=== PATIENT | female | born 1990 | race Caucasian/White ===

== ENCOUNTER 2017-02-19 07:33 | Inpatient (IN) | payer MEDICAID ==
[~2017-02-19] VITALS: Ht 162.6 cm; Wt 69.2 kg
[2017-02-19] MEDS ORDERED: LACTATED RINGER'S 1,000 ML IV PRN (07:50)
[2017-02-19 07:54] VITALS: Ht 162.6 cm; Wt 69.2 kg
[2017-02-19] MEDS ORDERED: PRENAT PO (07:55)
--- NOTE | 2017-02-19 07:55 | TRIAGE ---
OB Triage Datetime Report Generated by CPN: 02/19/2017 07:54 Datetime: 02/19/2017 07:50 Assessment Type: Triage Maternal Assessment Level of Consciousness: Fully Conscious DTR's/Clonus: DTRs 2+; No Clonus Headache: Denies Blurred Vision: No Respiratory Effort: Unlabored; Regular Rhythm; Equal Expansion Breath Sounds, Left: Clear and Equal Breath Sounds, Right: Clear and Equal Nausea/Vomiting: Denies RUQ Epigastric Pain: Denies Lower Extremities Edema: None Degree: None Upper Extremities Edema: None Facial Edema: None Fall Risk Assessment History of Falling: (0) No Secondary Diagnosis: (0) No Ambulatory Aid: (0) Bedrest/Nurse Assist IV Therapy: (0) No Gait: (0) Normal/Bedrest/Immobile Mental Status: (0) Oriented to Own Ability Fall Score: 0 Fall Risk Score Definition: No Risk: No action required Datetime: 02/19/2017 07:48 EGA: 37.5 Datetime: 02/19/2017 07:36 Stage of : OB Triage Labor Evaluation Monitor Mode: External Heart Rate FHR Baseline Rate: fhr 130 Monitor Mode: External US Vaginal Exam Dilatation (cms): 10.0 Effacement (%): 100 Station: 2 Exam By: wliu Membrane Status: Ruptured Membranes Ruptured Date/Time: 02/19/2017 07:00 Membranes Rupture Method: Spontaneous Amniotic Fluid Color: Clear Vaginal Bleeding: Normal Show Datetime: 02/19/2017 07:30 Time of Arrival: 02/19/2017 07:30 Arrived By: Wheelchair Arrived From: Home Chief Complaint: pt. came to hospital c/o uc since 0100am, srom @0700, clear Movement: Present Contractions: Regular Time Contractions Began: 02/19/2017 01:00 Rupture of Membranes: Ruptured Vaginal Bleeding: Normal Show Vaginal Discharge: Denies Recent Sexual Intercouse: Denies Abdominal Trauma: Not Applicable Patient Complaints: Contractions Time Provider Notified: 02/19/2017 07:31 Provider Notified: Initial Plan: r/o labor
[2017-02-19] MEDS ORDERED: LACTATED RINGER'S 1,000 ML IV SCH (07:56)
[2017-02-19] MEDS ORDERED: OXYTOCIN 30 UNITS/LR 500 ML IV SCH ×2 (08:00)
[2017-02-19] MEDS ORDERED: OXYTOCIN 30 UNITS/LR 500 ML IV PRN (08:00)
[2017-02-19] MEDS ORDERED: METHYLERGONOVINE 0.2 MG INJ IM PRN (08:00)
[2017-02-19] MEDS ORDERED: LIDOCAINE 1% (MPF) 30 ML INJ INJ PRN (08:00)
[2017-02-19] MEDS ORDERED: MISOPROSTOL 200 MCG TAB PR PRN (08:00)
[2017-02-19] MEDS ORDERED: BUTORPHANOL 2 MG INJ IV PRN (08:00)
[2017-02-19] MEDS ORDERED: CARBOPROST 250 MCG INJ IM PRN (08:00)
[2017-02-19] MEDS ORDERED: AMPICILLIN 2 GM/NS (PMX) 100 ML IV ONE (08:00)
[2017-02-19] MEDS ORDERED: IBUPROFEN 600 MG TAB PO ONE (08:30)
[2017-02-19 08:39] LABS: BASOPHILS % 0.2 % (0.0-2.0); EOSINOPHILS % 0.1 % (0.0-7.0); HEMATOCRIT 38.8 % (37.0-47.0); HEMOGLOBIN 14.3 g/dl (12.0-16.0); LYMPHOCYTES # 1.5 10^3/ul (0.8-2.9); LYMPHOCYTES % 9.1 % (15.0-51.0); MEAN CORPUSCULAR HEMOGLOBIN 34.1 pg (29.0-33.0); MEAN CORPUSCULAR HGB CONC 36.9 g/dl (32.0-37.0); MEAN CORPUSCULAR VOLUME 92.6 fl (82.0-101.0); MEAN PLATELET VOLUME 11.9 fl (7.4-10.4); MONOCYTES % 6.1 % (0.0-11.0); NEUTROPHIL # 14.1 10^3/ul (1.6-7.5); NEUTROPHILS % 83.8 % (39.0-77.0); PLATELET COUNT 148 10^3/UL (140-415); RED BLOOD COUNT 4.19 10^6/ul (4.20-5.40); RED CELL DISTRIBUTION WIDTH 13.3 % (11.5-14.5); WHITE BLOOD COUNT 16.9 10^3/ul (4.8-10.8)
[2017-02-19 09:05] LABS: INR 0.85; PROTIME 11.6 Sec (12.2-14.2); PT RATIO 0.9
[2017-02-19 09:06] LABS: PARTIAL THROMBOPLASTIN TIME 24.5 Sec (25.0-35.0)
--- NOTE | 2017-02-19 09:26 | LDN ---
Date/Time of Note Date/Time of Note DATE: 02/19/17 TIME: 09:21 Delivery Summary Normal spontaneous vaginal delivery of a baby boy from OA position shoulders delivered without any difficulty rest of the baby's body followed cord clamped after stopped pulsing nasal oropharyngeal suction was performed baby handed to the team for immediate attention placenta spontaneous expulsion inspected complete blood loss 250 cc patient sustained very small first-degree perineal laceration repaired with 4-0 chromic catgut estimated blood loss 250 cc Weeks of Gestation March 07, 2017 Placenta Delivered: Spontaneously Meconium: none Episiotomy: No Estimated blood loss: 250 Sponge & Needle done & correct: Yes All needle counts correct: Yes Any foreign bodies felt in the: No Problems: Infant Delivery Information Sex Sex: male Apgars 1 Minute: 9 5 Minute: 9 Suctioning Nose & mouth suctioned at katty: Yes Delee suction performed: Yes Umbilical Cord Umbilical cord with: 3 Vessels Nuchal cord present X: 1 Cord Blood was obtained: Yes KANCHAN TRUONG MD Feb 19, 2017 09:26
--- NOTE | 2017-02-19 09:32 | HP ---
Date/Time of Note Date/Time of Note DATE: 02/19/17 TIME: 09:27 OB - History Hx of Present Free Text/Dictation 26 years old female 2 para EDC March 07, 2017 admitted to [facility] in active labor pelvic examination on admission cervical dilatation complete presenting part vertex at -1 station patient directed to the delivery room expected normal vaginal delivery heart rate category 1 Chief Complaint: Labor contractions and pain Estimated Due Date: Mar 07, 2017 : 2 Para: 1 Care: Limited Care Ultrasounds: Normal mid trimester US Obstetrical Complications: None Past Family/Social History * Past Medical, Surgical, Family and Obstetric Histories reviewed from chart. Rubella: immune RPR/VDRL: Negative GBS Status: Negative HBsAG: Negative OB Admission Exam Physical Exam HEENT: WNL Heart: Rhythm Normal Lungs: Clear, Equal Abdomen: WNL Extremities: Normal Reflexes: Normal Cervical Dilatation: 10cm Effacement: 100% Station: +1 Membranes: Ruptured Amniotic Fluid: Clear Heart Rate: 130's Accelerations: Accelerations Present Decelerations: Early Decelerations Varibility: Moderate Contractions on Admission: < 5 Minutes Apart Intensity: Firm Last 72 hours Lab Results CBC & BMP 02/19/17 07:48 OB Assessment/Plan Reason for admission: active labor, other (26 years old female 2 para 1 EDC of March 07, 2017 admitted to the hospital in active labor examination on admission, cervical dilatation complete vertex at +1 station premature rupture member) Plan: Other (Anticipating normal vaginal delivery) KANCHAN TRUONG MD Feb 19, 2017 09:32
[2017-02-19] MEDS ORDERED: OXYCODONE/ASPIRIN (4.88/325) TAB PO PRN ×2 (10:00)
[2017-02-19] MEDS ORDERED: WITCH HAZEL/GLYCERIN PAD PR PRN (10:00)
[2017-02-19] MEDS ORDERED: LANOLIN 7 GM TUBE TOP PRN (10:00)
[2017-02-19] MEDS ORDERED: ACETAMINOPHEN/CODEINE #3 TAB PO PRN ×2 (10:00)
[2017-02-19] MEDS ORDERED: DIBUCAINE 1% 30 GM OINT PR PRN (10:00)
[2017-02-19] MEDS ORDERED: BENZOCAINE 20% 56 ML SPRAY TOP PRN (10:00)
[2017-02-19] MEDS ORDERED: ONDANSETRON 4 MG INJ IV PRN (10:00)
[2017-02-19] MEDS ORDERED: ACETAMINOPHEN 325 MG TAB PO PRN (10:00)
[2017-02-19 10:49] VITALS: BP 108/63; RESP 19
[2017-02-19] MEDS: OXYTOCIN 30 UNITS/LR 500 ML IV SCH ×2 (11:10→14:48)
[2017-02-19 11:47] VITALS: BP 118/70; RESP 19
[2017-02-19] MEDS ORDERED: AMPICILLIN 1 GM/NS (PMX) 50 ML IV SCH (12:00)
[2017-02-19] MEDS: IBUPROFEN 600 MG TAB PO SCH ×2 (13:22→17:33)
[2017-02-19 14:03] LABS: BARBITURATES NEGATIVE (NEGATIVE); BENZODIAZEPINES NEGATIVE (NEGATIVE); CANNABINOIDS NEGATIVE (NEGATIVE); COCAINE NEGATIVE (NEGATIVE); OPIATES NEGATIVE (NEGATIVE)
[2017-02-19 16:09] VITALS: BP 120/73; RESP 19
[2017-02-19 20:15] VITALS: BP 93/55; PULSE 80; RESP 18
[2017-02-19] MEDS: SENNA/DOCUSATE NA (8.6MG/50MG) TAB PO SCH (21:00)
[2017-02-20 04:00] VITALS: BP 95/56; PULSE 72; RESP 18
[2017-02-20] MEDS: IBUPROFEN 600 MG TAB PO SCH ×4 (05:53→17:33)
[2017-02-20 07:45] LABS: BASOPHILS % 0.3 % (0.0-2.0); EOSINOPHILS # 0.1 10^3/ul (0.0-0.5); HEMATOCRIT 34.6 % (37.0-47.0); HEMOGLOBIN 11.9 g/dl (12.0-16.0); LYMPHOCYTES # 2.3 10^3/ul (0.8-2.9); LYMPHOCYTES % 18.6 % (15.0-51.0); MEAN CORPUSCULAR HEMOGLOBIN 32.9 pg (29.0-33.0); MEAN CORPUSCULAR HGB CONC 34.4 g/dl (32.0-37.0); MEAN CORPUSCULAR VOLUME 95.6 fl (82.0-101.0); MEAN PLATELET VOLUME 11.8 fl (7.4-10.4); MONOCYTE # 1.2 10^3/ul (0.3-0.9); MONOCYTES % 9.6 % (0.0-11.0); NEUTROPHIL # 8.8 10^3/ul (1.6-7.5); NEUTROPHILS % 69.9 % (39.0-77.0); PLATELET COUNT 144 10^3/UL (140-415); RED BLOOD COUNT 3.62 10^6/ul (4.20-5.40); RED CELL DISTRIBUTION WIDTH 13.7 % (11.5-14.5); WHITE BLOOD COUNT 12.5 10^3/ul (4.8-10.8)
[2017-02-20 08:20] VITALS: BP 96/54; PULSE 63; RESP 18
--- NOTE | 2017-02-20 09:06 | PN ---
Date/Time of Note Date/Time of Note DATE: 02/20/17 TIME: 09:05 OB Subjective Subjective Subjective day Afebrile Vital signs are stable Abdomen soft Uterus firm Lochia normal Extremity normal Ambulation encouraged Laboratory Tests Test 02/19/17 12:18 02/20/17 07:08 Urine Opiates Screen NEGATIVE Urine Barbiturates NEGATIVE Urine Amphetamines Screen NEGATIVE Urine Benzodiazepines Screen NEGATIVE Urine Cocaine Screen NEGATIVE Urine Cannabinoids NEGATIVE White Blood Count 12.510^3/ul Red Blood Count 3.6210^6/ul Hemoglobin 11.9g/dl Hematocrit 34.6% Mean Corpuscular Volume 95.6fl Mean Corpuscular Hemoglobin 32.9pg Mean Corpuscular Hemoglobin Concent 34.4g/dl Red Cell Distribution Width 13.7% Platelet Count 61861^3/UL Mean Platelet Volume 11.8fl Neutrophils % 69.9% Lymphocytes % 18.6% Monocytes % 9.6% Eosinophils % 1.0% Basophils % 0.3% Nucleated Red Blood Cells % 0.0/100WBC Neutrophils # 8.810^3/ul Lymphocytes # 2.310^3/ul Monocytes # 1.210^3/ul Eosinophils # 0.110^3/ul Basophils # 0.010^3/ul Nucleated Red Blood Cells # 0.010^3/ul Current Medications Medications (Trade) Dose Ordered Sig/Eros Route PRN Reason Start Time Stop Time Status Last Admin Dose Admin Lactated Ringer's 1,000 ml @ 125 mls/hr Q8H IV 02/19/17 07:56 02/19/17 09:54 DC 02/19/17 08:13 Ampicillin 100 ml @ 100 mls/hr ONCE ONCE IV 02/19/17 08:00 02/19/17 08:59 DC Ampicillin (Ampicillin 1 Gm/ NS (Pmx)) 50 ml @ 100 mls/hr Q4H IV 02/19/17 12:00 02/19/17 12:00 DC Butorphanol Tartrate (Stadol) 2 mg Q2H PRN IV PAIN 02/19/17 08:00 02/19/17 09:54 DC Lidocaine 30 ml 30 ml ONCE PRN INJ EPISIOTOMY/TEARING 02/19/17 08:00 02/19/17 09:54 DC Oxytocin/Lactated Ringer's 500 ml @ 125 mls/hr ONCE -MAY REPEAT X1 IV 02/19/17 08:00 02/19/17 09:54 DC 02/19/17 09:30 Oxytocin/Lactated Ringer's 500 ml @ 125 mls/hr ONCE IV 02/19/17 08:00 02/19/17 09:54 DC 02/19/17 08:07 Lactated Ringer's 1,000 ml @ 2,000 mls/hr Q30M PRN IV PRE-EPIDURAL BOLUS 02/19/17 07:50 02/19/17 09:54 DC Oxytocin/Lactated Ringer's 500 ml @ 0 mls/hr ONCE PRN IV For Hemorrhage Management 02/19/17 08:00 02/19/17 09:54 DC Methylergonovine Maleate (Methergine) 0.2 mg ONCE PRN IM VAGINAL BLEEDING 02/19/17 08:00 02/19/17 09:55 DC Carboprost Tromethamine (Hemabate) 250 mcg ONCE PRN IM VAGINAL BLEEDING 02/19/17 08:00 02/19/17 09:55 DC Misoprostol (Cytotec) 1,[address] VAGINAL BLEEDING 02/19/17 08:00 02/19/17 09:55 DC Ibuprofen 600 mg 600 mg ONCE ONCE PO 02/19/17 08:30 02/19/17 08:37 DC 02/19/17 08:42 Oxytocin/Lactated Ringer's 500 ml @ 125 mls/hr Q4H IV 02/19/17 09:52 02/19/17 17:51 DC 02/19/17 14:48 Ibuprofen (Motrin) 600 mg Q6 PO 02/19/17 12:00 02/20/17 05:53 Acetaminophen (Tylenol Tab) 650 mg Q4H PRN PO PAIN LEVEL 1-5 02/19/17 10:00 Acetaminophen/ Codeine Phosphate (Tylenol No.3) 1 tab Q4H PRN PO PAIN LEVEL 1-5 02/19/17 10:00 Acetaminophen/ Codeine Phosphate (Tylenol No.3) 2 tab Q4H PRN PO PAIN LEVEL 6-10 02/19/17 10:00 Oxycodone/Aspirin (Percodan) 1 tab Q3H PRN PO PAIN LEVEL 1-5 02/19/17 10:00 Oxycodone/Aspirin (Percodan) 2 tab Q3H PRN PO PAIN LEVEL 6-10 02/19/17 10:00 Ondansetron HCl (Zofran Inj) 4 mg Q6H PRN IV NAUSEA AND/OR VOMITING 02/19/17 10:00 Senna/Docusate Sodium (Senokot-S) 1 tab BID PO 02/19/17 21:00 Witch Maryam/ Glycerin (Tucks Pads) [address] HEMORRHOID/EPISIOTMY PAIN 02/19/17 10:00 02/19/17 11:11 Benzocaine (Dermoplast Sarepta) 1 spray BEDSIDE MEDICATION PRN TOP HEMORRHOID/EPISIOTMY PAIN 02/19/17 10:00 02/19/17 11:11 Dibucaine (Nupercainal) 1 applic B[address]SIDE MEDICATION PRN CT HEMORRHOID/EPISIOTMY PAIN 02/19/17 10:00 Lanolin ([id number]-[id number]) 1 applic BEDSIDE MEDICATION PRN TOP BEDSIDE FOR JIM TO NIPPLES 02/19/17 10:00 02/19/17 11:11 Measles/Mumps/ Rubella Vaccine Live (Mmr Ii Vaccine) 0.5 ml ONCE ONCE SC* 02/21/17 09:00 02/21/17 09:01 KANCHAN TRUONG MD Feb 20, 2017 09:06
[2017-02-20] MEDS: SENNA/DOCUSATE NA (8.6MG/50MG) TAB PO SCH ×2 (09:14→21:09)
[2017-02-20 15:20] VITALS: BP 99/57; PULSE 64; RESP 18
[2017-02-20 19:45] VITALS: BP 98/56; PULSE 69; RESP 18
[2017-02-21 04:00] VITALS: BP 100/59; PULSE 50; RESP 18
[2017-02-21] MEDS: IBUPROFEN 600 MG TAB PO SCH ×3 (05:58→11:19)
[2017-02-21 07:20] VITALS: BP 103/52; PULSE 62; RESP 19
[2017-02-21] MEDS: SENNA/DOCUSATE NA (8.6MG/50MG) TAB PO SCH (08:38)
[2017-02-21] MEDS ORDERED: MEASLES,MUMPS,RUBELLA VACCINE INJ SC* ONE (09:00)
--- NOTE | 2017-02-21 10:17 | PD.PPDC ---
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
--- NOTE | 2017-02-21 10:19 | DS ---
Date/Time of Note Date/Time of Note DATE: 02/21/17 TIME: 10:17 Discharge Summary Admission/Discharge Info Admit Date/Time Feb 19, 2017 at 07:35 Discharge Date/Time February 21, 2017 at 10 AM Discharge Diagnosis Post normal vaginal delivery day 2 Patient Condition: Good Procedures Normal vaginal delivery Hx of Present Illness Term admitted in labor Hospital Course Satisfactory uneventful Home Meds Reported Medications Multivit/Min/Fol Ac/Iron/Pren* ( S*) 1 Tab Tab, 1 TAB PO DAILY, TAB 02/19/17 Follow-up Plan instructions given appointment to the office in 2 weeks Primary Care Provider Not On Staff Doctor Time spent on discharge: < 30 minutes KANCHAN TRUONG MD Feb 21, 2017 10:19
== END 2017-02-21 15:00 | disposition home or self-care (01) | DRG 775 ==
LOC: OBT 07:33 → L-D 07:35 → PP1 10:14
PROVIDERS: ADMIT Obstetrics & Gynecology; ATTEND Obstetrics & Gynecology
PROC: 10E0XZZ Delivery of Products of Conception, External Approach (ICD-10-PCS; principal; 2017-02-19)
PROC: 0HQ9XZZ Repair Perineum Skin, External Approach (ICD-10-PCS; 2017-02-19)
PROC: 4A1HX4Z Monitoring of Products of Conception, Cardiac Electrical Activity, External Approach (ICD-10-PCS; 2017-02-19)
DX: O70.0 First degree perineal laceration during delivery (principal); Z37.0 Single live birth; Z3A.37 37 weeks gestation of pregnancy
CPT/HCPCS: 80307; 85025; 85610; 85730; 86592; 86900; 86901; 87340; G0463; J2590; J7120